=== PATIENT | female | born 1935 | race Caucasian/White ===

== ENCOUNTER 2017-09-01 19:31 | Inpatient (IN) | payer OTHER, BC ==
[~2017-09-01] VITALS: Ht 167.6 cm; Wt 72.0 kg
--- NOTE | ~2017-09-01 | WRIGHTHP ---
[place], [place] PATIENT HISTORY AND PHYSICAL EXAM NAME: MARIA DEL CARMEN TAPIA [facility] #: [id number] UNIT #: [id number] ROOM: 424 DOCTOR: JERILYN TELLEZ MD BIRTHDATE: [birth year] DOS: 09/02/2017 HISTORY OF PRESENT ILLNESS: The patient is an 82 years old. She is a resident of [facility], became quite agitated and combative and abusive and had to be brought to the Emergency Room for change in mental status. She was evaluated in the ER, was found to have possibility of UTI and she was admitted. This morning, the patient did not respond to any calls or questions, she mostly ignored me, but she did not appear to be in any distress. PAST MEDICAL HISTORY: Significant for; 1. Last hospitalization in August 2016. She has history of major depression, has history of psychotic features 2. Alzheimer dementia, late onset. 3. History of AAA without rupture. 4. Bicuspid aortic valve. 5. Benign hypertension. 6. Gastroesophageal reflux disease. 7. Hypothyroidism. 8. Osteoarthritis. 9. Osteoporosis. 10. History of CA, thyroid, status post thyroidectomy. MEDICATIONS: That the patient is currently are interferon 30 mcg on Wednesdays, Tylenol 6000 mg q. 6, amlodipine 5/10 b.i.d., baclofen 20 t.i.d., vitamin D 1000 units daily, citalopram 20 daily, Colace 100 b.i.d., folic acid 0.8 mg daily, lactulose 20 grams twice a day, levothyroxine 75 mcg daily, meclizine 25 twice a day, meloxicam 7.5 daily, Namenda 28 daily, Remeron 15 at bedtime, multivitamin 1 tablet daily. SOCIAL HISTORY: Nonsmoker, does not use any alcohol. PHYSICAL EXAMINATION: GENERAL: She is awake and alert, orientation is questionable because she does not respond to any questions. VITAL SIGNS: Graphic trend shows that she is afebrile, blood pressure is 123/63, pulse of 70, respirations 18, temperature 98.1. LUNGS: Clear. HEART: Regular. ABDOMEN: Obese, soft, nontender. EXTREMITIES: Without any edema. LABORATORY DATA: White cell count is normal at 7.7, hemoglobin and hematocrit is normal. Glucose 105, BUN 37, creatinine 0.94, potassium 5.3. ASSESSMENT AND PLAN: 1. Acute kidney injury with hyperkalemia. IV fluids will be ordered, this is most likely related to nephrotoxic medication which will be discontinued. UTI is also another possibility. 2. Urinary tract infection, which causes metabolic encephalopathy. Urine culture has been sent. IV fluids, IV antibiotics have been ordered. [place], [place] PATIENT HISTORY AND PHYSICAL EXAM NAME: MARIA DEL CARMEN TAPIA UNIT #: [id number] ROOM: [facility] DOCTOR: JERILYN TELLEZ MD BIRTHDATE: [birth year] 3. Dementia with psychosis. We will ask Dr. Bullock for an opinion and may require [facility] stay. JERILYN TELLEZ MD CM:HISPHYS:PATIENT HISTORY AND PHYSICAL EXAMINATION [id number] JERILYN TELLEZ MD 09/02/17 1519 interface
--- NOTE | ~2017-09-01 | PR ---
[place], [place] PROGRESS NOTE NAME: MARIA DEL CARMEN TAPIA UNIT #: [id number] ROOM: 424 DOCTOR: JERILYN TELLEZ MD BIRTHDATE: [birth year] DOS: 09/03/2017 SUBJECTIVE: The patient is doing fine without any complaints this morning. Denies any chest pains, palpitations. She is awake and alert and oriented, able to answer questions appropriately. No longer anxious or agitated. OBJECTIVE: VITAL SIGNS: Blood pressure is 139/70, pulse is 78, respirations 18, temperature 98.3. LUNGS: Diminished breath sounds. No wheezes, rales or rhonchi heard. HEART: Regular. ABDOMEN: Obese, soft, nontender. EXTREMITIES: Without any edema. BMP is normal. ASSESSMENT AND PLAN: 1. Acute kidney injury, acute tubular necrosis was from dehydration, also possibly from nonsteroidals and MAMADOU inhibitor the patient was on. All these medicines were discontinued. The kidney functions have improved with fluids. 2. Metabolic encephalopathy. This seems to have corrected. The patient does not require hospitalization at [facility] at this time. The plan is to discharge her back to the care home. 3. Urinary tract infection. Urine culture is still pending. I will place her on antibiotics. JERILYN TELLEZ MD CM:PNTRANS [id number] JERILYN ETLLEZ MD 09/04/17 0014 interface
--- NOTE | ~2017-09-01 | CON ---
[place], [place] REPORT OF CONSULTATION NAME: MARIA DEL CARMEN TAPIA UNIT #: [id number] ROOM: 424 DOCTOR: PAOLA ROLDAN MD BIRTHDATE: [birth year] DOS: 09/02/2017 CHIEF COMPLAINT: The patient was nonverbal. HISTORY OF PRESENT ILLNESS: This is an 82-year-old white female known to me from her stay at [facility]. The patient was sent to the Emergency Room for evaluation for possible [facility] admission due to increased noncompliance with care and verbal and physical aggressiveness. While in the Emergency Room, the patient was uncooperative and would not allow them to draw blood, perform EKGs, etc. She was ultimately found to have a UTI and hyperkalemia and was admitted to the medical floor for medical stabilization first. PAST MEDICAL HISTORY: Remarkable for angina, GERD, hepatitis, hypothyroidism, hypertension, bicuspid aortic valve, hiatal hernia, thyroidectomy, multiple sclerosis. MENTAL STATUS: My mental status this morning was limited due to the patient's lack of cooperation. She kept her eyes closed and would not look at me and she would only nod her head yes or no. She reported that she did not know how long she has been here or why she is here and what she was doing. A nurse was about to start an IV on her and she shook her head that she would not cooperate with the nurse. DIAGNOSES: Brief psychotic disorder, rule out major depression with psychotic features. PLAN: At this point, I will go ahead and start her on a mild antidepressant. I will utilize Remeron 15 mg at bedtime. I do think based on the history that I have seen in the chart and her lack of cooperation that a stay at the [facility] would be warranted, so when she is physically stabilized, we will transfer to the [facility]. PAOLA ROLDAN MD CM:CONSTR:REPORT OF CONSULTATION 11 09/02/172131 interface
[~2017-09-01 19:31] MED LIST: ACETAMINOPHEN500 M4 PO; AMLODIPINE BESY PO; AMLODIPINE PO; ANTIVERT/2525 M1 PO; ANTIVERT/2525 MG PO; ANTIVERT12.5 MG PO; ANUSOL HC30 GM R; ANUSOL1 EACH R; ARMOUR THYROID90 M1 PO; ARMOUR THYROID90 MG PO; ATOXIMETIN-B1 CAP PO; AVONEX30 MCG/0.5 IM; Amitriptyline H10 MG PO; B6-5050 MG PO; BACLOFEN10 MG PO; BACLOFEN20 M1 PO; BACTRIM DS 8001 TA1 PO; BENA PO; BENAZEPRIL10 MG PO; BENTYL10 MG PO; BIOTIN1 M1 PO; BIOTIN1000 MC1 PO; BRIN20TA PO; BUSPAR5 MG PO; CALCIUM + D 6001 TA1 PO; CIPRO250 MG PO; CIPRO500 MG PO; CITALOPRAM10 MG PO; COLACE100 MG PO; CONSTULOSE10 GM/151 PO; CRANBERRY PLUS1 EAC1 PO; CRANBERRY400 M2 PO; DOCUSATE SODIU250 MG PO; DUONEB 3 MG/3 ML3 M1 INH; ECHINACEA HERB380 MG PO; ECPIRIN325 MG PO; EVENING PRIMR1000 MG PO; EXELON13.3 MG/21 T; FLAGYL250 MG PO; FLONASE0.05 MG/AC NS; FLORASTOR250 MG PO; FOLIC ACID0.8 M1 PO; FOLIC ACID1 MG PO; FUNGI NAIL TP; HEALTHY HEART1 EACH PO; HEPTALAC10 GM/15 M PO; K-TAB10 MEQ PO; LASIX20 MG PO; LISINOPRIL10 M1 PO; LOTREL 10 MG-201 CAP PO; LOTREL 5 MG-101 CAP PO; Lovenox30 MG/0.3 SC; MAPAP EXTRA ST500 MG PO; MECLIZINE HCL25 M2 PO; MECLIZINE12.5 MG PO; MEGACE 40400 MG/10 PO; MELOXICAM7.5 MG PO; METHOTREXATE S2.5 MG PO; METHOTREXATE2.5 M1 PO; MOBIC15 MG PO; MOTRIN400 MG PO; NAMENDA-28 PO; NAMENDA-7 PO; NATURAL LUTEIN20 MG PO; NATURE'S BLEN1200 MG PO; ONCE DAILY1 TAB PO; OSCAL,OYSTER S500 MG PO; PERCOCET 325 MG1 TA2 PO; PERI-COLACE 501 TAB PO; PHARMASSURE FO0.8 MG PO; PHENERGAN25 M1 PO; PHENERGAN25 M3 PO; POTASSIUM CHLO10 MEQ PO; PRILOSEC20 MG PO; PRIMROSE OILE500 MG PO; PROBIOTIC1 EAC3 PO; PROBIOTIC250 MG PO; PROMETHAZINE25 M1 PO; PROTONIX40 MG PO; REMERON15 M2 PO; TRANSDERM0.33 MG/24 TD; TYLENOL ES500 MG PO; TYLENOL325 M1 PO; VALIUM2 MG PO; VICODIN 5/500 505 MG PO; VITAMIN B-6200 MG PO; VITAMIN C1000 M5 PO; VITAMIN D-32000 UNI1 PO; VITAMIN D2000 IU PO; VITAMIN D31000 IU PO; ZINC SULFATE220 MG PO; ZINC50 M3 PO; Zofran4 MG PO; [UNRECOGNIZED DRUG - OTHER] PO
--- NOTE | 2017-09-01 19:45 | NUR ---
PATIENT REFUSES BLOOD WORK, GOWN AND TO GIVE A URINE SPECIMEN. DR. YFN JESSICA.
--- NOTE | 2017-09-01 20:30 | NUR ---
DR. COULTER REPORTS HE IS PINK SLIPPING THE PATIENT, POA AWARE. DR. COULTER REPORTS PATIENT HAS TO GET HER BLOOD WORK AND URINALYSIS DONE BY STRAIGHT CATHERIZATION.
[2017-09-01 20:56] LABS: BASO % 0.4 % (0.0-1.0); EOS # 0.2 10*3/uL (0.0-0.4); EOS % 2.6 % (1.0-4.0); HEMATOCRIT 34.6 % (37.0-47.0); HEMOGLOBIN 11.3 g/dl (12.0-16.0); LYMPH # 0.8 10*3/uL (1.3-4.4); LYMPH % 10.9 % (27.0-41.0); MEAN CELL VOLUME 95.3 fl (81.0-99.0); MEAN CORPUSCULAR HGB 31.1 pg (27.0-31.0); MEAN CORPUSCULAR HGB CONC 32.7 g/dl (33.0-37.0); MEAN PLATELET VOLUME 10.6 fl (9.6-12.3); MONO # 0.9 10*3/uL (0.1-1.0); MONO % 11.3 % (3.0-9.0); NEUT # 5.7 10*3/uL (2.3-7.9); NEUT % 73.9 % (47.0-73.0); PLATELET COUNT AUTOMATED 235 10*3/uL (130-400); RED BLOOD COUNT 3.63 10*6/uL (4.10-5.10); RED CELL DISTRI WIDTH 16.4 % (0-14.5); WHITE BLOOD COUNT 7.7 10*3/uL (4.8-10.8)
[2017-09-01 21:12] LABS: ALBUMIN 3.4 gm/dl (3.1-4.5); ALKALINE PHOSPHATASE 121 U/L (45-117); BUN 37 mg/dl (7-24); CHLORIDE 108 mmol/L (98-107); CREATININE 0.94 mg/dL (0.55-1.02); POTASSIUM 5.3 mmol/L (3.5-5.1); SGOT/AST 17 IU/L (3-35); SGPT/ALT 17 U/L (12-78); SODIUM 140 mmol/L (136-145); TOTAL PROTEIN 7.9 gm/dL (6.4-8.2)
[2017-09-01 21:13] LABS: ACETAMINOPHEN (TYLENOL) < 2.0 ug/ml (10-30); ETHYL ALCOHOL < 3.0 mg/dl (<3)
[2017-09-01 21:15] LABS: BILIRUBIN NEGATIVE (NEGATIVE); BLOOD 1+ (NEGATIVE); CLARITY CLOUDY (CLEAR); COLOR YELLOW (YELLOW); GLUCOSE NEGATIVE (NEGATIVE); KETONE NEGATIVE (NEGATIVE); LEUKO ESTERASE 3+ (NEGATIVE); NITRITE POSITIVE (NEGATIVE); SPECIFIC GRAVITY 1.015 (1.005-1.030); UROBILINOGEN 0.2 E.U./dl (0.2-1.0)
[2017-09-01 21:18] LABS: BACTERIA 4+; WBC TNTC wbc/hpf (0-5)
[2017-09-01 21:19] LABS: MUCOUS 3+
--- NOTE | 2017-09-01 21:19 | NUR ---
PATIENT LAYING IN BED WITH EYES CLOSED, RESPIRATIONS EASY AND REGULAR. WILL CONTINUE TO CLOSELY MONITOR. NO NEEDS VOICED AT THIS TIME.
[2017-09-01 21:23] LABS: URINE AMPHETAMINES < 1000 (1000ng/ml); URINE BARBITURATES < 200 (200ng/ml); URINE BENZODIAZEPINES < 200 (200ng/ml); URINE CANNABINOIDS (THC) < 50 (50ng/ml); URINE COCAINE < 300 (300ng/ml); URINE METHADONE < 300 (300ng/ml); URINE OPIATES < 300 (300ng/ml); URINE PHENCYCLIDINE < 25 (25ng/ml)
--- NOTE | 2017-09-01 21:24 | NUR ---
PATIENT REFUSING VITAL SIGNS. WILL CONTINUE TO MONITOR.
--- NOTE | 2017-09-01 22:01 | NUR ---
Patient resting in bed with eyes closed. Will continue to closely monitor. Respirations easy and regular.
--- NOTE | 2017-09-01 22:58 | NUR ---
PATIENT RESTING IN BED, NO NEEDS VOICED AT THIS TIME. OFFERED TO DIM LIGHTS FOR PATIENT AND SHE SAID YES. PATIENT REFUSES BLOOD PRESSURE. WILL CONTINUE TO MONITOR.
[2017-09-02] VITALS (7 sets, daily range): BP systolic 115–151; BP diastolic 63–88
--- NOTE | 2017-09-02 00:11 | NUR ---
REPORT FROM CCELE[facility]. PT RESTING QUIETLY WITHOUT C/O. VITALS STABLE.--JACQUELYN ELLIS RN
--- NOTE | 2017-09-02 01:27 | NUR ---
SPOKE WITH NURSE RIVERA FROM [facility] AND GIVEN UPDATE ON PATIENT.
--- NOTE | 2017-09-02 02:19 | NUR ---
PT RESTING QUIETLY.---JACQUELYN ELLIS RN
--- NOTE | 2017-09-02 03:14 | NUR ---
REPORT RECEIVED FROM SHITAL, MEHRDAD SLEEPING IN BED RESP EASY NO SIGNS OF DISTRESS, PT VISABLE FROM DESK WILL CONTINUE TO MONITOR, BED IN LOWEST POSITION BED RAILS UP X 2 CALL BATRES IN REACH, LIGHTS ON LOW
--- NOTE | 2017-09-02 04:37 | NUR ---
PATIENT SLEEPING IN SEMIFOWLERS POSITION NO SIGNS OF DISTRESS WILL CONTINUE TO MONITOR
--- NOTE | 2017-09-02 06:14 | NUR ---
IV ESTABLISHED TO LEFT ANTECUBITAL AND SECURED WITH TAPE AND KERLEX. IV SITE ASYMPTOMATIC WITH GOOD BLOOD RETURN. WILL CONTINUE TO MONITOR.
--- NOTE | 2017-09-02 06:20 | NUR ---
ATTEMPTED TO CALL REPORT. NURSE UNAVAILABLE AT THIS TIME. THEY WILL CALL BACK WHEN A NURSE IS READY FOR REPORT.
--- NOTE | 2017-09-02 06:27 | NUR ---
PATIENT REFUSED CARDIAC MONITORING "I WILL RIP IT OFF"
--- NOTE | 2017-09-02 06:37 | NUR ---
A 82, admitted to , under the services of JERILYN Conklin MD with a diagnosis of UTI, HYPERKALEMIA. Chief complaint is PSYCH EVAL. Patient arrived via bed from ER. Monitor applied. Initial assessment completed. Vital signs taken and recorded. JERILYN CONKLIN MD notified of admission to the unit. Orders received. See assessment for past medical history, medications and allergies. Patient and/or family oriented to unit. [facility] visitation policy reviewed. Clothing/patient valuable form completed. EZEQUIEL CANSECO
[2017-09-02] MEDS ORDERED: SYNTHROID,LEVO75 MCG PO (06:41)
[2017-09-02] MEDS ORDERED: LACTULOSE20 GM/30 M PO (06:49)
[2017-09-02] MEDS ORDERED: NAMENDA-28 PO (06:50)
[2017-09-02] MEDS ORDERED: RIVASTIGMINE TAR6 M1 PO (06:50)
[2017-09-02] MEDS ORDERED: CELEXA20 MG PO (06:50)
[2017-09-02] MEDS ORDERED: AQUAPHOR396 GM T (06:52)
[2017-09-02] MEDS ORDERED: REMERON15 M2 PO (06:53)
[2017-09-02] MEDS ORDERED: ACETAMINOPHEN500 M6 PO (06:54)
[2017-09-02] MEDS ORDERED: VITAMIN D31000 UNI1 PO (06:55)
--- NOTE | 2017-09-02 06:56 | NUR ---
MED REC UPDATED PER LIST PROVIDED BY [facility]
--- NOTE | 2017-09-02 07:11 | NUR ---
[facility] ADMITTED. NO FURTHER QUESTIONS ASKED.
--- NOTE | 2017-09-02 08:22 | NUR ---
Patient is LTC at [facility] and can return when medically stable for discharge.
--- NOTE | 2017-09-02 08:30 | NUR ---
PROCESSING CLERK VS. SLEEPING SOUNDLY. COMES FROM [facility].
--- NOTE | 2017-09-02 09:31 | NUR ---
SPOKE TO DR TELLEZ AND RECEIVED NEW ORDERS
--- NOTE | 2017-09-02 09:33 | NUR ---
PHYSICIAN WAS NOTIFIED OF DR. ROLDAN CONSULT. RESPONSE OF NOTIFICATION WAS OK I WILL BE UP TO SEE HER.. LULA COOK
--- NOTE | 2017-09-02 11:47 | NUR ---
CALLED DR TELLEZ FOR DIET ORDER. NEW ORDER RECEIVED.
--- NOTE | 2017-09-02 20:00 | NUR ---
MORE AWAKE & ALERT THAN THIS MORNING. TALKING TO STAFF. COOPERATIVE. PT. INCONTINENT OF A LARGE AMOUNT OF URINE AT THIS TIME. COMPLETE BED CHANGE DONE BY THIS RN & PA. PT. EXCORATED BETWEEN LEGS. PT. VOICES NO C/O AT THIS TIME; CALL LIGHT WITHIN REACH.
--- NOTE | 2017-09-02 20:00 | NUR ---
AWAKE & ALERT RESTING IN BED WITH HOB ELEVATED. PT. INCONTINENT OF A LARGE AMOUNT OF URINE. COMPLETE BED CHANGE BY THIS RN & PA.
--- NOTE | 2017-09-02 22:30 | NUR ---
PT. INCONTINENT OF A LARGE AMOUNT OF URINE. COMPLETE BED CHANGE DONE. PT. REPOSITIONED FOR COMFORT. VOICES NO C/O AT THIS TIME. CALL LIGHT WITHIN REACH.
[2017-09-03] VITALS: BP 139/70
--- NOTE | 2017-09-03 04:00 | NUR ---
RESTING IN BED WITH EYES CLOSED. IVF'S CONTINUE TO INFUSE WITHOUT DIFFICULTY; SITE ASYMPTOMATIC. CALL LIGHT WITHIN REACH.
[2017-09-03 07:46] LABS: CHLORIDE 111 mmol/L (98-107); CREATININE 0.64 mg/dL (0.55-1.02); SODIUM 142 mmol/L (136-145)
[2017-09-03 07:48] LABS: BUN 18 mg/dl (7-24)
[2017-09-03 08:00] VITALS: BP 133/65
[2017-09-03] MEDS ORDERED: NORVASC5 MG PO (08:01)
[2017-09-03] MEDS ORDERED: MECLIZINE HCL25 M2 PO (08:01)
[2017-09-03] MEDS ORDERED: CEFUROXIME AXE250 MG PO (08:02)
--- NOTE | 2017-09-03 08:37 | NUR ---
Patient is being discharged back to [facility], transportation scheduled for 11:00 AM with [facility]. [facility], nursing notified
--- NOTE | 2017-09-03 08:40 | NUR ---
PT ALERT AND ORIENTED THIS AM, NO C/O NO DISTRESS NOTED. STATES SHE FEELS FINE. DR TELLEZ VISITED. PT TO BE DISCHARGED TO [facility] TODAY. SEE SHIFT ASSESSMENT.
--- NOTE | 2017-09-03 08:53 | NUR ---
PT STATES SHE DOES NOT WANT FLU VACCINE, STATES I AM PRETTY SURE I ALREADY HAD IT, REFUSES TO GET AT THIS TIME. I WILL CHECK WITH [facility] WHEN I CALL REPORT TO SEE IF PT HAD IT.
--- NOTE | 2017-09-03 10:00 | NUR ---
PT HALLUCINATING, STATES THERE ARE MEN IN HER ROOM AND HANGING ON WINDOWS AND ON ROOF. ALERT TO PERSON PLACE AND TIME BUT, STILL INSIST THERE ARE MEN IN ROOM. DR TELLEZ NOTIFIED AND DISCHARGE CANCELLED FOR TODAY.
--- NOTE | 2017-09-03 10:15 | NUR ---
PT TOOK FRAMING CONSULTANT OFF, STATES SHE DOES NOT NEED IT SHE IS GOING HOME. EXPLAINED TO PT THAT DR TELLEZ WANTS HER TO STAY NOW, PT REFUSES TO HAVE MONITOR BACK ON. WILL CONTINUE TO TRY.
[2017-09-03 12:00] VITALS: BP 143/76
--- NOTE | 2017-09-03 15:27 | NUR ---
DISCHARGED TO U VIA WHEELCHAIR WITH [facility] STAFF.
== END 2017-09-03 15:27 | disposition home health service (06) | DRG 682 ==
LOC: ED 19:31 → EDHOLD 09-02 06:11 → 4E 09-02 06:11
PROVIDERS: Student in an Organized Health Care Education/Training Program; ADMIT Internal Medicine
DX: N17.0 Acute kidney failure with tubular necrosis (principal); G93.41 Metabolic encephalopathy; E87.5 Hyperkalemia; N39.0 Urinary tract infection, site not specified; F02.81 Dementia in other diseases classified elsewhere, unspecified severity, with behavioral disturbance; G30.1 Alzheimer's disease with late onset; F23 Brief psychotic disorder; F29 Unspecified psychosis not due to a substance or known physiological condition; G35 Multiple sclerosis; E86.0 Dehydration; F32.9 Major depressive disorder, single episode, unspecified; I10 Essential (primary) hypertension; K21.9 Gastro-esophageal reflux disease without esophagitis; M19.90 Unspecified osteoarthritis, unspecified site; M81.0 Age-related osteoporosis without current pathological fracture; E89.0 Postprocedural hypothyroidism; Z85.850 Personal history of malignant neoplasm of thyroid

== ENCOUNTER 2017-09-03 13:25 | Inpatient (IN) | payer OTHER, BC ==
[~2017-09-03] VITALS: Ht 167.6 cm; Wt 72.1 kg
--- NOTE | ~2017-09-03 | PR ---
[place], [place] PROGRESS NOTE NAME: MARIA DEL CARMEN TAPIA UNIT #: [id number] ROOM: 310 DOCTOR: PAOLA ROLDAN MD BIRTHDATE: [birth year] DOS: 09/13/2017 CHIEF COMPLAINT: "I am feeling so much better than I did before." SUMMARY OF THE VISIT: The patient was interviewed as she sat in the breakfast area in a wheelchair, sitting with peers. She stopped her conversation to engage in a conversation with me. She was pleasant and bright and reports sleep and appetite have normalized and she is feeling much better. She is anxious to be able to return to [facility] in hopes that this is soon. MENTAL STATUS: She is alert and oriented to person, place, but not time. Mood does seem to be strongly trending towards euthymia and affect is much more appropriate. There are no symptoms of deja or hypomania. There are no overt auditory or visual hallucinations. No delusions, no paranoia. Short term memory is poor. PLAN: I will simplify her drug regimen. She is on Celexa and Remeron. Remeron was started first and she does state that her sleep and appetite have normalized. So I will discontinue Celexa at this point, lessening her risk of the potential of serotonin syndrome. I will also discontinue Benadryl and Haldol as I do not see agitation and prefer for alternative options. Engage in individual and naranjo milieu activity with the plan then to return to [facility] when psychiatrically stable. PAOLA ROLDAN MD CM:PNTRANS [id number] PAOLA ROLDAN MD 09/13/17 1010 interface
--- NOTE | ~2017-09-03 | PR ---
[place], [place] PROGRESS NOTE [id number] #: [id number] ROOM: 309 DOCTOR: Verito LAMAR,LAUREN BIRTHDATE: [birth year] DOS: 09/05/2017 SUBJECTIVE: 09/05/2017. The patient seen and spoke with the staff. Per staff, the patient had a good night. No auditory or visual hallucination. Slept all night. No behavioral problems or issues. She ate and medication compliant. The patient was pleasant and cooperative. She was in her bed. She was sleeping. She opened her eyes when I called her name. She said that she is doing fine, but feeling tired. She denied any side effect from the medication. She denied any depressed mood or hopelessness. Denied any other problems or concerns. MENTAL STATUS EXAMINATION: The patient was pleasant and cooperative, described her mood as "fine." Affect, mood congruent. Thought process is with confabulation. She denied auditory or visual hallucination. No delusion or paranoia noted. She denied suicidal ideation, intent or plan. She also denied homicidal ideation, intent or plan. ASSESSMENT: 1. Major depressive disorder, recurrent with psychotic feature. 2. Dementia with behavioral disturbances. PLAN: 1. Continue current medication and care. 2. Continue redirection. 3. Carrasquillo milieu. LAUREN LAMAR MD CM:SULMA [phone] Verito LAMAR 09/05/171925 interface
--- NOTE | ~2017-09-03 | PR ---
[place], [place] PROGRESS NOTE NAME: [facility] DEL [facility]MEN [facility]AP[id number] #: [id number] ROOM: 310 DOCTOR: Verito LAMAR,LAUREN BIRTHDATE: [birth year] DOS: 09/10/2017 SUBJECTIVE: The patient seen and spoke with the staff. Per staff, patient is doing well. No behavioral problems or issues. Medication compliant. Complains of her shoulder pain. The patient was pleasant, cooperative. She reported doing good. She reports good sleep and appetite. Denied any side effect from the medication. Denied depressed mood or hopelessness. Asked me when she will be seeing the orthopedic physician for her shoulder. She did not express any other concerns. MENTAL STATUS EXAMINATION: The patient was pleasant, cooperative. Described her mood as "okay." Affect, mood congruent. Thought process is with some confabulation. She denied auditory or visual hallucination. No delusion or paranoia noted. She denied suicidal ideation, intent or plan. She also denied any homicidal ideation, intent or plan. ASSESSMENT: 1. Major depressive disorder, recurrent with psychotic feature. 2. Cognitive disorder, not otherwise specified. PLAN: 1. Continue current medication and care. 2. Continue redirection. 3. Consult medical team for shoulder pain. LAUREN LAMAR MD CM:SULMA [phone] Verito LAMAR 09/10/17 1115 interface
--- NOTE | ~2017-09-03 | PR ---
[place], [place] PROGRESS NOTE NAME: MARIA DEL CARMEN TAPIA [facility] [id number] UNIT #: [id number] ROOM: 310 DOCTOR: Verito LAMAR,LAUREN BIRTHDATE: [birth year] DOS: 09/09/2017 SUBJECTIVE: The patient seen and spoke with the staff. Per staff, the patient is doing well. No behavior problems or issues. Medication compliant, but she started having a right shoulder and wrist pain. Medical team was consulted and they are on board. The patient was pleasant, cooperative. She was in the wheelchair in the day area. She reports doing well. She complains of right shoulder pain and not in any acute distress. Reports good sleep and appetite. MENTAL STATUS EXAMINATION: The patient was pleasant, cooperative, described her mood as "okay." Affect, mood congruent. Thought process goal directed. No flight of ideas, loosening of association. She denied auditory or visual hallucination. No delusion or paranoia noted. She denied suicidal ideation, intent or plan. She also denied homicidal ideation, intent or plan. Insight and judgment poor to fair. ASSESSMENT: 1. Major depressive disorder, recurrent with psychotic feature. 2. Cognitive disorder, not otherwise specified. PLANS: 1. Continue current medication and care. 2. Continue with redirection. 3. Carrasquillo milieu. 4. Consult medical team for right shoulder pain and swelling. LAUREN LAMAR MD CM:SULMA [phone] Verito LAMAR 09/10/17 0438 interface
--- NOTE | ~2017-09-03 | PR ---
[place], [place] PROGRESS NOTE NAME: MARIA DEL CARMEN TAPIA UNIT #: [id number] ROOM: 310 DOCTOR: PAOLA ROLDAN MD BIRTHDATE: [birth year] DOS: 09/15/2017 CHIEF COMPLAINT: "Will I ever to go back to [place]. I know paperwork." SUMMARY OF THE VISIT: The patient was interviewed in the dining area as she sat eating breakfast. She engaged readily in conversation with me and was inquisitive about returning to [facility]. She was actually able to joke with me remembering that paperwork needed to be done in order for her to be able to go there. She is hopeful that this will happen soon, so she can leave the hospital and return to [place] and have a more normal day-to-day level of activity. She does seem brighter and more engaging and does not exhibit any agitation or mood lability. Likewise, she is not exhibiting any medication side effects. MENTAL STATUS: She is alert and oriented with some time gaps. Mood does seem to be strongly trending towards euthymia and affect is much more appropriate. There are no symptoms of hypomania or deja. Likewise, there are no overt auditory or visual hallucinations. No delusions, no paranoia. Short term memory has mild gaps, otherwise she is intact. PLAN: I will maintain her current psychotropic regimen, continue to engage her in individual and naranjo milieu activity. We will plan to discharge to [facility] when psychiatrically stable. PAOLA ROLDAN MD CM:PNTRANS [phone] PAOLA ROLDAN MD 09/15/17 1024 interface
--- NOTE | ~2017-09-03 | PR ---
[place], [place] PROGRESS NOTE NAME: MARIA DEL CARMEN TAPIA UNIT #: [id number] ROOM: 310 DOCTOR: Verito LAMAR,LAUREN BIRTHDATE: [birth year] DOS: 09/07/2017 SUBJECTIVE: Patient seen and spoke with the staff. Per staff, patient is doing well. Slept all night. Taking her medication. No behavioral problems or issues. Patient was pleasant, cooperative. She said that she is doing good when I went to see her. She reports good sleep and appetite. Did not express any problems or concerns. She seems to be not in any distress. MENTAL STATUS EXAMINATION: Patient was pleasant, cooperative. Described her mood as "okay." Affect, mood congruent. Thought processes with confabulation. She denied auditory or visual hallucination. No delusion or paranoia noted. She denied suicidal ideation, intent or plan. She also denied homicidal ideation, intent or plan. ASSESSMENT: 1. Major depressive disorder with psychotic feature. 2. Dementia with behavioral disturbances. PLAN: 1. Continue current medications and care. 2. Continue redirection. 3. Supportive care. LAUREN LAMAR MD CM:SULMA [phone] Verito LAMAR 09/07/17 7649 interface
--- NOTE | ~2017-09-03 | PR ---
[place], [place] PROGRESS NOTE NAME: MARIA DEL CARMEN TAPIA UNIT #: [id number] ROOM: 309 DOCTOR: Verito LAMAR,LAUREN BIRTHDATE: [birth year] DOS: 09/04/2017 SUBJECTIVE: The patient seen and spoke with the staff. Per staff, the patient was up all night, fixated on phone, experiencing visual hallucination, hallucination of people walking around and having active conversations with them. The patient was somewhat pleasant and cooperative than yesterday. She was sitting in a wheelchair. She asked me that how long I will be in town and then also asked me that her daughter will try to get a hold of me. When I asked her how she did last night. She said she "you don't want to know," then she did not tell me anything. She looks pretty suspicious and paranoid. MENTAL STATUS EXAMINATION: The patient was pleasant, cooperative. She described her mood as "okay." Affect was flat, guarded. Thought processes contemplation. She denied auditory or visual hallucination. She seems to be paranoid. She denied suicidal ideation, intent or plan. She also denied homicidal ideation, intent or plan. Insight and judgment impaired. ASSESSMENT: 1. Major depressive disorder, recurrent with psychotic features. 2. Dementia with behavioral disturbances. PLAN: 1. I will discontinue her Abilify. 2. I will start her on Zyprexa 2.5 mg twice a day. 3. Continue other medications. 4. Continue redirection and naranjo milieu. LAUREN LAMAR MD CM:SULMA [phone] Verito LAMAR 09/04/17 1216 interface
--- NOTE | ~2017-09-03 | CON ---
[place], [place] REPORT OF CONSULTATION NAME: [facility] DEL [facility]MEN [facility] [id number] UNIT #: [id number] ROOM: 309 DOCTOR: SILVINO REZA MD BIRTHDATE: [birth year] DOS: 09/04/2017 DIAGNOSES: 1. The patient is an 82-year-old female with a past medical history of gastroesophageal reflux disease and esophagitis and hiatal hernia. 2. History of thyroidectomy with hypothyroidism. 3. History of multiple sclerosis. 4. History of major depression with psychotic features. 5. Alzheimer's type dementia, late onset. 6. History of abdominal aortic aneurysm without rupture. 7. Bicuspid aortic valve. 8. Benign essential hypertension. 9. Osteoarthritis involving multiple joints. 10. History of osteoporosis, postmenopausal. 11. History of thyroidectomy for thyroid cancer. The patient presently on mental Health Unit and she is here for increased agitation, aggressive behavior and visual hallucinations related to dementia. 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 The patient is a very pleasant this time and is not complaining of any chest pain, shortness of breath. No GI or urinary symptoms except for chronic burning in the urine. FAMILY HISTORY: Noncontributory. SOCIAL HISTORY: Denies smoking cigarettes, alcohol and drug abuse. MEDICATIONS: Celexa, Namenda, Remeron, Exelon, levothyroxine, amlodipine, folic acid, vitamin D, Zyprexa, mirtazapine, Haldol, rivastigmine, lactulose, Colace, baclofen, meclizine, cefuroxime. PHYSICAL EXAMINATION: GENERAL: Alert, appears oriented to place and person, no visible distress. Generalized weakness. VITAL SIGNS: Blood pressure 132/79, heart rate 73 beats per minute, breathing 20 times per minute, temperature 98 degrees Fahrenheit. HEENT AND NECK: Exam within normal limits. CARDIOVASCULAR SYSTEM: Heart rate is regular in rate and rhythm. S1 and S2 normally audible. LUNGS: Clear to auscultation. ABDOMEN: Soft, nontender. No obvious organomegaly. Bowel sounds are present. EXTREMITIES: Without significant cyanosis or edema. IMPRESSION: 1. The patient with late onset Alzheimer's type dementia with psychotic features, being treated with Zyprexa, memantine, Exelon, Haldol, mirtazapine and being followed closely in the Behavioral Health Unit. 2. Hypothyroidism with elevated TSH and low normal free T4 levels. I am increasing her levothyroxine from 75 to 100 mcg daily. 3. Benign essential hypertension. The patient on amlodipine. Blood pressure [place], [place] REPORT OF CONSULTATION NAME: MARIA DEL CARMEN TAPIA UNIT #: [id number] ROOM: 309 DOCTOR: SILVINO REZA MD BIRTHDATE: [birth year] is being monitored and controlled. 4. Chronic constipation, treated with Colace. The patient is moving her bowels. 5. Recent urinary tract infection with urine cultures growing Proteus mirabilis, being treated with cefuroxime. 6. Gastroesophageal reflux disease and esophagitis, asymptomatic at this time. Dr. Jonny Banuelos, thank you for asking me to see the patient. We will follow along with you on as needed basis. SILVINO REZA MD CM:CONSTR:REPORT OF CONSULTATION 25 [id number]/04/[id number] interface
--- NOTE | ~2017-09-03 | PR ---
[place], [place] PROGRESS NOTE [id number] UN[facility] #: [id number] ROOM: 310 DOCTOR: Verito LAMAR,LAUREN BIRTHDATE: [birth year] DOS: 09/08/2017 SUBJECTIVE: The patient was seen and spoke with the staff. Per staff, the patient is doing well. No behavioral problems or issues. Medication compliant, good sleep and appetite. The patient was pleasant, cooperative. She was in a wheelchair. Her daughter came to visit her. The patient reports doing well. She feels the medication is helping her. She denied any depressed mood or hopelessness. She reports good sleep and appetite and did not express any other concern. The patient's daughter also feels that the patient is improving and states the medications are helping her. MENTAL STATUS EXAMINATION: The patient was pleasant, cooperative. Described her mood as "okay" and good. Affect, mood congruent. In thought processes with confabulation. She denied auditory or visual hallucination. No delusion or paranoia noted. She denied suicidal ideation, intent or plan. She also denied homicidal ideation, intent or plan. ASSESSMENT: 1. Major depressive disorder, recurrent with psychotic feature. 2. Dementia with behavioral disturbances. PLAN: 1. Continue current medication and care. 2. Continue redirection. 3. Supportive care and naranjo milieu. LAUREN LAMAR MD CM:SULMA [id number] Verito LAMAR 09/08/17 [id number] interface
--- NOTE | ~2017-09-03 | WRIGHTHP ---
[place], [place] PATIENT HISTORY AND PHYSICAL EXAM NAME: MARIA DEL CARMEN TAPIA UNIT #: [id number] ROOM: 309 DOCTOR: Verito LAMAR,LAUREN BIRTHDATE: [birth year] DOS: 09/03/2017 PSYCHIATRIC HISTORY AND PHYSICAL REASON FOR HOSPITALIZATION: Increased agitation, aggressive behavior and visual hallucination. HISTORY OF PRESENT ILLNESS: Patient seen and chart reviewed. An 82-year-old female with history of dementia who was sent to the ER for increased [facility] and [facility]. The patient was found to have urinary tract infection and hyperkalemia, so she was admitted to the medical floor and after stabilization, she was sent to the psychiatric unit for further care and stabilization. PAST MEDICAL HISTORY: Significant for angina, GERD, hepatitis, , hiatal hernia, thyroidectomy, multiple sclerosis. PAST PSYCHIATRIC HISTORY: The patient has a history of depression. Denied any prior psychiatric hospitalization. Denied prior suicide attempt. No suicide in the family. SUBSTANCE ABUSE HISTORY: The patient denied any drugs or alcohol. SOCIAL HISTORY: She said that she was born and raised in [place]. once, had 7 kids, but denied any history of physical or sexual abuse. MENTAL STATUS EXAMINATION: The patient was pleasant, cooperative, irritable at times. She was alert, but not oriented to day, date, month and year. Speech was low tone. Described her mood as "okay." Affect was broad range. Irritable and angry at times as she is in a hospital. She acknowledges visual hallucination and denied auditory hallucination. No other delusions or paranoia noted. She denied suicidal ideation, intent or plan. She also denied homicidal ideation, intent or plan. Insight and judgment impaired. ASSESSMENT: 1. Major depressive disorder, recurrent with psychotic features, currently psychotic. 2. Dementia with behavioral disturbances. 3. Delirium secondary to general medical condition. PLAN: 1. We will continue her Celexa 20 mg in the morning. 2. Continue Namenda XR 28 mg daily. 3. Remeron 15 mg at night. 4. Continue Exelon 6 mg twice a day. 5. Continue redirection. 6. Encourage activity and naranjo milieu. 7. Supportive care. [place], [place] PATIENT HISTORY AND PHYSICAL EXAM NAME: MARIA DEL CARMEN TAPIA UNIT #: [id number] ROOM: 309 DOCTOR: Verito LAMAR,LAUREN BIRTHDATE: [birth year] LAUREN LAMAR MD CM:HISPHYS:PATIENT HISTORY AND PHYSICAL EXAMINATION [facility] [place] Verito LAMAR 09/03/17 [id number] interface
--- NOTE | ~2017-09-03 | PR ---
[place], [place] PROGRESS NOTE [id number] UN[facility] #: [id number] ROOM: 309 DOCTOR: Verito LAMAR,LAUREN BIRTHDATE: [birth year] DOS: 09/06/2017 PSYCHIATRIC PROGRESS NOTE SUBJECTIVE: Patient seen and spoke with the staff. Per staff, patient is doing well, slept well, no problems or issues, med compliant. Patient was pleasant and cooperative. She said that she is doing good, reading a book. Denied any problems or concerns. Denied depressed mood or hopelessness. Denied any other new signs or symptoms of depression. She reports good sleep and appetite. MENTAL STATUS EXAMINATION: The patient was pleasant, cooperative. Described her mood as "okay." Affect, mood congruent. Thought process goal directed. No flight of ideas, loosening of association. She denied auditory or visual hallucination. No delusion or paranoia noted. She denied suicidal ideation, intent or plan. She also denies homicidal ideation, intent or plan. ASSESSMENT: 1. Major depressive disorder with psychotic feature. 2. Dementia with behavioral disturbances. PLAN: 1. Continue current medication and care. 2. Continue redirection. 3. . LAUREN LAMAR MD CM:PNTRANS 52 Verito LAMAR 09/07/1730 interface
[~2017-09-03 13:25] MED LIST changes: +ACETAMINOPHEN500 M6 PO; +AQUAPHOR396 GM T; +CEFUROXIME AXE250 MG PO; +CELEXA20 MG PO; +LACTULOSE20 GM/30 M PO; +NORVASC5 MG PO; +RIVASTIGMINE TAR6 M1 PO; +SYNTHROID,LEVO75 MCG PO; +VITAMIN D31000 UNI1 PO
[2017-09-03 16:18] VITALS: BP 139/84
[2017-09-03 17:30] VITALS: BP 139/84
[2017-09-03 20:00] VITALS: BP 139/74
[2017-09-04 07:42] LABS: BASO % 0.2 % (0.0-1.0); EOS # 0.1 10*3/uL (0.0-0.4); EOS % 1.3 % (1.0-4.0); HEMATOCRIT 34.5 % (37.0-47.0); HEMOGLOBIN 11.3 g/dl (12.0-16.0); LYMPH # 1.1 10*3/uL (1.3-4.4); LYMPH % 20.2 % (27.0-41.0); MEAN CELL VOLUME 95.6 fl (81.0-99.0); MEAN CORPUSCULAR HGB 31.3 pg (27.0-31.0); MEAN CORPUSCULAR HGB CONC 32.8 g/dl (33.0-37.0); MEAN PLATELET VOLUME 10.6 fl (9.6-12.3); MONO # 0.6 10*3/uL (0.1-1.0); MONO % 11.6 % (3.0-9.0); NEUT # 3.5 10*3/uL (2.3-7.9); NEUT % 65.9 % (47.0-73.0); PLATELET COUNT AUTOMATED 211 10*3/uL (130-400); RED BLOOD COUNT 3.61 10*6/uL (4.10-5.10); RED CELL DISTRI WIDTH 16.5 % (0-14.5); WHITE BLOOD COUNT 5.3 10*3/uL (4.8-10.8)
[2017-09-04 07:55] VITALS: BP 132/79
[2017-09-04 08:19] LABS: ALBUMIN 3.5 gm/dl (3.1-4.5); BUN 17 mg/dl (7-24); CHLORIDE 110 mmol/L (98-107); CHOLESTEROL 188 mg/dL (<200); CREATININE 0.69 mg/dL (0.55-1.02); POTASSIUM 3.7 mmol/L (3.5-5.1); SGOT/AST 28 IU/L (3-35); SGPT/ALT 20 U/L (12-78); SODIUM 139 mmol/L (136-145); TOTAL PROTEIN 7.7 gm/dL (6.4-8.2); TRIGLYCERIDES 61 mg/dl (<150); VLDL CHOLESTEROL 12 mg/dL (6-40)
[2017-09-04 08:28] LABS: ALKALINE PHOSPHATASE 105 U/L (45-117); HDL CHOLESTEROL 76 mg/dl (40-60); LDL CHOLESTEROL 100 mg/dL (9-159)
[2017-09-04 08:45] LABS: VITAMIN D, 25-HYDROXY 28.9 ng/mL (30-100)
[2017-09-04 20:08] VITALS: BP 129/74
[2017-09-05 07:58] VITALS: BP 130/76
[2017-09-05 15:56] LABS: BILIRUBIN NEGATIVE (NEGATIVE); BLOOD 1+ (NEGATIVE); CLARITY SL CLOUDY (CLEAR); COLOR YELLOW (YELLOW); GLUCOSE NEGATIVE (NEGATIVE); KETONE TRACE (NEGATIVE); LEUKO ESTERASE 2+ (NEGATIVE); NITRITE NEGATIVE (NEGATIVE); PH 5.5 (5.0-9.0); SPECIFIC GRAVITY 1.025 (1.005-1.030); UROBILINOGEN 0.2 E.U./dl (0.2-1.0)
[2017-09-05 16:02] LABS: BACTERIA 1+; WBC 41-50 wbc/hpf (0-5)
[2017-09-05 19:48] VITALS: BP 138/70
[2017-09-06 08:40] VITALS: BP 139/81
[2017-09-06 08:48] VITALS: BP 139/81
[2017-09-06 19:52] VITALS: BP 131/79
[2017-09-07 08:03] VITALS: BP 139/76
[2017-09-07 20:00] VITALS: BP 145/67
[2017-09-07 20:22] VITALS: BP 143/77
[2017-09-08 07:56] VITALS: BP 149/82
[2017-09-08 19:15] VITALS: BP 150/80
[2017-09-09 08:35] VITALS: BP 155/74
[2017-09-09 20:05] VITALS: BP 109/59
[2017-09-10 07:37] LABS: BASO % 0.4 % (0.0-1.0); EOS # 0.1 10*3/uL (0.0-0.4); EOS % 1.6 % (1.0-4.0); HEMATOCRIT 30.9 % (37.0-47.0); HEMOGLOBIN 10.2 g/dl (12.0-16.0); LYMPH # 1.4 10*3/uL (1.3-4.4); LYMPH % 18.9 % (27.0-41.0); MEAN CELL VOLUME 96.3 fl (81.0-99.0); MEAN CORPUSCULAR HGB 31.8 pg (27.0-31.0); MEAN PLATELET VOLUME 10.2 fl (9.6-12.3); MONO # 1.2 10*3/uL (0.1-1.0); MONO % 16.5 % (3.0-9.0); NEUT # 4.6 10*3/uL (2.3-7.9); NEUT % 61.8 % (47.0-73.0); PLATELET COUNT AUTOMATED 214 10*3/uL (130-400); RED BLOOD COUNT 3.21 10*6/uL (4.10-5.10); RED CELL DISTRI WIDTH 16.3 % (0-14.5); WHITE BLOOD COUNT 7.5 10*3/uL (4.8-10.8)
[2017-09-10 07:38] VITALS: BP 113/67
[2017-09-10 13:15] LABS: THYROID STIM HORMONE (HS) 1.22 uIU/ml (0.358-4.75)
[2017-09-10 13:48] LABS: BODY FLUID WBC 11663 /uL
[2017-09-10 14:00] LABS: BF LYMPHOCYTES 5 %; BF MACROPHAGES 19 %; BF NEUTROPHILS 76 %
[2017-09-10 19:51] VITALS: BP 128/78
[2017-09-11 08:18] VITALS: BP 123/73
[2017-09-11 13:03] LABS: ACID FAST SMEAR Negative (.)
[2017-09-11 20:35] VITALS: BP 126/63
[2017-09-12 07:50] VITALS: BP 137/78
[2017-09-12 19:39] VITALS: BP 138/76
[2017-09-13 07:49] VITALS: BP 140/87
[2017-09-13 20:20] VITALS: BP 144/80
[2017-09-14 08:28] VITALS: BP 141/78
[2017-09-14 20:00] VITALS: BP 128/68
[2017-09-15 08:01] VITALS: BP 153/68
[2017-09-15] MEDS ORDERED: MEMANTINE HCL10 MG PO (09:25)
[2017-09-15] MEDS ORDERED: OLANZAPINE5 MG PO ×2 (09:25)
[2017-09-15] MEDS ORDERED: Synthroid,Lev100 MCG PO (12:52)
[2017-09-15] MEDS ORDERED: VITAMIN D50000 UNIT PO (12:53)
[2017-09-15] MEDS ORDERED: IBUPROFEN600 MG PO (12:54)
== END 2017-09-15 14:33 | disposition home or self-care (01) | DRG 885 ==
LOC: 3N 13:25
PROVIDERS: Internal Medicine; Orthopaedic Surgery; Psychiatry & Neurology Psychiatry; ADMIT Psychiatry & Neurology Psychiatry
PROC: 0R9J3ZX Drainage of Right Shoulder Joint, Percutaneous Approach, Diagnostic (ICD-10-PCS; principal; 2017-09-10)
DX: F33.3 Major depressive disorder, recurrent, severe with psychotic symptoms (principal); E87.5 Hyperkalemia; G35 Multiple sclerosis; F02.81 Dementia in other diseases classified elsewhere, unspecified severity, with behavioral disturbance; N39.0 Urinary tract infection, site not specified; F05 Delirium due to known physiological condition; F23 Brief psychotic disorder; G30.1 Alzheimer's disease with late onset; M25.411 Effusion, right shoulder; I10 Essential (primary) hypertension; K21.0 Gastro-esophageal reflux disease with esophagitis; M15.9 Polyosteoarthritis, unspecified; K59.09 Other constipation; M75.81 Other shoulder lesions, right shoulder; M81.0 Age-related osteoporosis without current pathological fracture; E89.0 Postprocedural hypothyroidism; Z98.42 Cataract extraction status, left eye; Z98.41 Cataract extraction status, right eye; Z90.49 Acquired absence of other specified parts of digestive tract; Z98.51 Tubal ligation status; Z82.49 Family history of ischemic heart disease and other diseases of the circulatory system; Z88.0 Allergy status to penicillin; Z88.5 Allergy status to narcotic agent; Z88.6 Allergy status to analgesic agent; Z88.8 Allergy status to other drugs, medicaments and biological substances; Z79.899 Other long term (current) drug therapy; Z87.440 Personal history of urinary (tract) infections; Z91.81 History of falling; Z85.850 Personal history of malignant neoplasm of thyroid

== ENCOUNTER → 2017-10-22 | Outpatient (CLI) | payer OTHER, BC ==
[~2017-10-22] MED LIST changes: +IBUPROFEN600 MG PO; +MEMANTINE HCL10 MG PO; +OLANZAPINE5 MG PO; +Synthroid,Lev100 MCG PO; +VITAMIN D50000 UNIT PO
== END | disposition home or self-care (01) ==
LOC: CT 01:06
DX: K76.89 Other specified diseases of liver (principal); N39.0 Urinary tract infection, site not specified; G35 Multiple sclerosis; N31.9 Neuromuscular dysfunction of bladder, unspecified; N19 Unspecified kidney failure; I51.7 Cardiomegaly; R59.0 Localized enlarged lymph nodes; M43.8X4 Other specified deforming dorsopathies, thoracic region; M43.17 Spondylolisthesis, lumbosacral region; M81.0 Age-related osteoporosis without current pathological fracture; M43.8X6 Other specified deforming dorsopathies, lumbar region